=== PATIENT | male | born 1990 | race African-American/Black ===

== ENCOUNTER 2018-11-09 06:26 | Day surgery (SDC) | payer OTHER ==
[2018-11-08 10:34] LABS: Potassium 4.2 mmol/L (3.5-5.1)
[2018-11-08 10:35] LABS: Absolute Lymphocytes (CBC) 1.7 K/uL (0.7-4.9); Basophils % 0.4 % (0-1.3); Hematocrit 46.7 % (36.0-45.0); Lymphocytes % 24.2 % (15.3-44.8); MPV 8.2 fL (7.6-11.3); RBC Red Blood Cell Count 5.55 M/uL (3.86-4.86)
--- OUTSIDE RECORDS SUMMARY | 2018-11-09 06:28 | XMS REPORT | Summary of Care ---
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 [facility] Ashtyn Her MD [address] [place] [address] Prediabetes (Primary Dx); Phlebotomy 1, [facility] Lab Hyperlipidemia, unspecified hyperlipidemia type; [facility] Obstructive apnea [address] [facility] [place] [address] Allergies Not on Filedocumented as of this encounter (statuses as of 11/06/2018) Medications Not on filedocumented as of this encounter (statuses as of 11/06/2018) Active Problems Not on filedocumented as of this encounter (statuses as of 11/06/2018) Social History Tobacco Use Types Packs/Day Years Used Date Never Assessed Sex Assigned at Date Recorded Not on file Job Start Date Occupation Industry Not on file Not on file Not on file Travel History Travel Start Travel End No recent travel history available. documented as of this encounter Last Filed Vital Signs Not on filedocumented in this encounter Plan of Treatment Name Type Priority Associated Diagnoses Date/Time VITAMIN D, 25-[facility] LAB Routine Prediabetes 11/06/2018 9:42 AM Hyperlipidemia, CDT unspecified hyperlipidemia type Obstructive apnea GLYCOSYLATED HEMOGLOBIN LAB Routine Prediabetes 11/06/2018 9:42 AM (A1C) Hyperlipidemia, CDT unspecified hyperlipidemia type Obstructive apnea COMP. METABOLIC PANEL LAB Routine Prediabetes 11/06/2018 9:42 AM ([id number]) Hyperlipidemia, CDT unspecified hyperlipidemia type Obstructive apnea LIPID PANEL LAB Routine Prediabetes 11/06/2018 9:42 AM ([id number])(TOTAL Hyperlipidemia, CDT CHOLESTEROL, unspecified hyperlipidemia TRIGLYCERIDES, HDL) type Obstructive apnea Health Maintenance Due Date Last Done Comments VARICELLA VACCINES (1 of 2 - 13+ 2002 2-dose series) DTaP,Tdap,and Td Vaccines (1 - 2008 Tdap) INFLUENZA VACCINE (#1) 2018 PNEUMOCOCCAL 0-64 YEARS COMBINED Aged Out No longer eligible based on SERIES patient's age to complete this topic documented as of this encounter Procedures Procedure Name Priority Date/Time Associated Diagnosis Comments CBC WITH Routine 11/06/2018 9:42 Prediabetes Results for this DIFFERENTIAL AM CDT Hyperlipidemia, procedure are in unspecified the results hyperlipidemia type section. Obstructive apnea CBC WITH DIFF Routine 11/06/2018 9:42 Prediabetes Results for this AM CDT Hyperlipidemia, procedure are in unspecified the results hyperlipidemia type section. Obstructive apnea documented in this encounter Results CBC WITH DIFFERENTIAL (11/06/2018 9:42 AM CDT) WBC 8.46 4.20 - 10.70 [facility] 10*3/L [facility] RBC 5.42 4.26 - 5.52 [facility] 10*6/L [facility] HGB 14.8 12.2 - 16.4 g/dL [facility] HCT 47.4 38.4 - 49.3 % [facility] MCV 87.5 81.7 - 95.6 fL [facility] MCH 27.3 26.1 - 32.7 pg [facility] MCHC 31.2 31.2 - 35.0 g/dL [facility] RDW-SD 39.6 38.5 - 51.6 fL [facility] RDW-CV 12.4 12.1 - 15.4 % [facility] PLT 241 150 - 328 [facility] 10*3/L HOSPITAL [facility] MPV 9.4 (L) 9.8 - 13.0 fL [facility] NRBC/100 WBC 0.0 0.0 - 10.0 /100 [facility] WBCs [facility] NRBC x10^3 <0.01 10*3/L [facility] GRAN MAT (NEUT) % 61.5 % [facility] IMM GRAN % 0.40 % [facility] LYMPH % 25.4 % [facility] MONO % 10.2 % [facility] EOS % 2.1 % [facility] BASO % 0.4 % [facility] GRAN MAT x10^3(ANC) 5.21 1.99 - 6.95 [facility] 10*3/uL [facility] IMM GRAN x10^3 0.03 0.00 - 0.06 [facility] 10*3/uL HOSPITAL LAB[facility] LYMPH x10^3 2.15 1.09 - 3.23 [facility] 10*3/uL H[facility]PITAL [facility] MONO x10^3 0.86 0.36 - 1.02 [facility] 10*3/uL HOSPITAL LAB[facility] EOS x10^3 0.18 0.06 - 0.53 [facility] 10*3/uL HOSPITAL [facility] BASO x10^3 0.03 0.01 - 0.09 [facility] 10*3/uL [facility] Specimen Blood Performing Organization Address City/State/Zipcode Phone Number [facility] CLIA: [id number], [address] [place] [address] documented in this encounter Visit Diagnoses Diagnosis Prediabetes - Primary Other abnormal glucose Hyperlipidemia, unspecified hyperlipidemia type Obstructive apnea Obstructive sleep apnea (adult) (pediatric) documented in this encounter Insurance Payer Benefit Plan / Subscriber ID Effective Phone Address Type Group Dates [employer] xxxxxxxxx 2013-[facility] [address] [place] [address] [place] [address] documented as of this encounter
--- OUTSIDE RECORDS SUMMARY | 2018-11-09 06:28 | XMS REPORT ---
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 Problem Body mass index (BMI) of 40.0-44.9 Z68.41 Active in adult Problem Morbid obesity E66.01 Active Problem Prediabetes R73.03 Active Problem ADD (attention deficit disorder) F98.8 Active Problem Multiple lipomas D17.9 Active Problem Elevated blood pressure reading in R03.0 Active office without diagnosis of hypertension Problem Tinea cruris B35.6 Active Problem ISELA (obstructive sleep apnea) G47.33 Active Problem Goiter E04.9 Active Problem Borderline diabetes R73.09 Active Problem Hyperlipidemia, unspecified E78.5 Active hyperlipidemia type Problem Autism F84.0 Active Problem Obesity (BMI 30-39.9) E66.9 Active Problem Acanthosis nigricans L83 Active Problem Oppositional defiant behavior F91.3 Active Problem Attention-deficit hyperactivity F90.9 Active disorder, unspecified type Medications No Known Medications Results No Known Results Summary Purpose eClinicalWorks Submission
--- OUTSIDE RECORDS SUMMARY | 2018-11-09 06:28 | XMS REPORT ---
:1990 Author Organization eClinicalWorks Care Team Providers Name Role Phone Nancy Fowler Provider Role Unavailable Allergies, Adverse Reactions, Alerts Substance Reaction Event Type N.K.D.A. Info Not Available Non Drug Allergy Problems Problem Type Condition Code Onset Dates Condition Status Assessment Pain of left foot M79.672 Active Assessment Pain in right foot M79.671 Active Assessment Body mass index (BMI) of 40.0-44.9 Z68.41 Active in adult Assessment Vitamin D deficiency E55.9 Active Assessment Morbid obesity E66.01 Active Assessment ISELA (obstructive sleep apnea) G47.33 Active Assessment Hyperlipidemia, unspecified E78.5 Active hyperlipidemia type Assessment Prediabetes R73.03 Active Problem Oppositional defiant behavior F91.3 Active Problem Borderline diabetes R73.09 Active Problem Tinea cruris B35.6 Active Problem Hyperlipidemia, unspecified E78.5 Active hyperlipidemia type Problem ISELA (obstructive sleep apnea) G47.33 Active Problem Morbid obesity E66.01 Active Problem Obesity (BMI 30-39.9) E66.9 Active Problem Pain in left ankle and joints of M25.572 Active left foot Problem Pain in right foot M79.671 Active Problem Elevated blood pressure reading in R03.0 Active office without diagnosis of hypertension Problem Prediabetes R73.03 Active Problem Other chronic pain G89.29 Active Problem ADD (attention deficit disorder) F98.8 Active Problem Multiple lipomas D17.9 Active Problem Morbid (severe) obesity due to E66.01 Active excess calories Problem Pain of left foot M79.672 Active Problem Body mass index (BMI) of 40.0-44.9 Z68.41 Active in adult Assessment Other chronic pain G89.29 Active Problem Hematuria R31.9 Active Assessment Pain in left ankle and joints of M25.572 Active left foot Problem Vitamin D deficiency E55.9 Active Problem Autism F84.0 Active Problem Acanthosis nigricans L83 Active Problem 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 with complications Problem Goiter E04.9 Active Problem Allergic rhinitis J30.9 Active Problem Attention-deficit hyperactivity F90.9 Active disorder, unspecified type Medications Medication Code Code Instructions Start End Date Status Dosage System Date Vitamin D [facility] 20292320038 1000 UNIT Orally Active 1 tablet Once a day ZyrTEC [facility] 70342018183 orally Once Active 10 mg (OTC) daily 1 tablet Risperidone [facility] 24511608052 2 MG Orally Once Active 1 tablet in a day evening for mood/behavi or Results No Known Results Summary Purpose eClinicalWorks Submission
--- OUTSIDE RECORDS SUMMARY | 2018-11-09 06:28 | XMS REPORT | Summary of Care ---
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 [facility] Ashtyn Her MD [address] [place] [address] Laboratory 1, [facility] Health Maintenance Due Date Last Done Comments VARICELLA VACCINES (1 of 2 - 13+ 2002 2-dose series) DTaP,Tdap,and Td Vaccines ( - 2008 Tdap) INFLUENZA VACCINE (Retired 11/04/2018 version) PNEUMOCOCCAL 0-64 YEARS COMBINED Aged Out No longer eligible based on SERIES patient's age to complete this topic documented as of this encounter Procedures Procedure Name Priority Date/Time Associated Diagnosis Comments ASSIGNMENT OF BENEFITS Routine 11/06/2018 9:13 AM CDT documented in this encounter Results Not on filedocumented in this encounter Insurance Payer Benefit Plan / Subscriber ID Effective Phone Address Type Group Dates [employer] xxxxxxxxx 2013- [address] [place] [address] [place] [address] documented as of this encounter
--- OUTSIDE RECORDS SUMMARY | 2018-11-09 06:28 | XMS REPORT ---
:1990 Author Organization eClinicalWorks Care Team Providers Name Role Phone Nancy Fowler Provider Role Unavailable Allergies, Adverse Reactions, Alerts Substance Reaction Event Type N.K.D.A. Info Not Available Non Drug Allergy Problems Problem Type Condition Code Onset Dates Condition Status Assessment Body mass index (BMI) of 40.0-44.9 Z68.41 Active in adult Assessment Morbid obesity E66.01 Active Assessment Vitamin D deficiency E55.9 Active Assessment ISELA (obstructive sleep apnea) G47.33 Active Assessment Hyperlipidemia, unspecified E78.5 Active hyperlipidemia type Assessment Influenza vaccination administered Z23 Active at current visit Problem Acanthosis nigricans L83 Active Assessment Elevated blood pressure reading in R03.0 Active office without diagnosis of hypertension Problem Attention-deficit hyperactivity F90.9 Active disorder, unspecified type Assessment Multiple lipomas D17.9 Active Problem Hematuria R31.9 Active Problem Allergic rhinitis J30.9 Active Problem Vitamin D deficiency E55.9 Active Problem Morbid (severe) obesity due to E66.01 Active excess calories Problem Body mass index (BMI) of 40.0-44.9 Z68.41 Active in adult Problem 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 with complications Problem Morbid obesity E66.01 Active Assessment Prediabetes R73.03 Active Problem Prediabetes R73.03 Active Problem ADD [...] Problem Obesity (BMI 30-39.9) E66.9 Active Problem Oppositional defiant behavior F91.3 Active Medications Medication Code Code Instructions Start End Date Status Dosage System Date Risperidone [facility] 22301480020 2 MG Orally Once Active 1 tablet in a day evening for mood/behavi or Vitamin D [facility] 06630942162 1000 UNIT Orally Active 1 tablet Once a day ZyrTEC [facility] 54675359077 orally Once Active 10 mg (OTC) daily 1 tablet Results No Known Results Immunizations Vaccine Administration Date Flucelvax Dec 05, 2017 Summary Purpose eClinicalWorks Submission
--- OUTSIDE RECORDS SUMMARY | 2018-11-09 06:28 | XMS REPORT ---
:1990 Author Organization eClinicalWorks Care Team Providers Name Role Phone Janeth Nancy Provider Role Unavailable Allergies No Known Allergies Problems Problem Type Condition Code Onset Dates Condition Status Problem Morbid obesity E66.01 Active Problem Pain in right foot M79.671 Active Problem Other chronic pain G89.29 Active Problem Mood disorder F39 Active Problem Autism F84.0 Active Problem CPAP (continuous positive airway Z99.89 Active pressure) dependence Problem Hyperlipidemia, unspecified E78.5 Active hyperlipidemia type Problem Oppositional defiant behavior F91.3 Active Problem Skin lesion L98.9 Active Problem Pain of left foot M79.672 Active Problem Pain in left ankle and joints of M25.572 Active left foot Problem Elevated BP without diagnosis of R03.0 Active hypertension Problem Depression screening Z13.31 Active Problem 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
--- OUTSIDE RECORDS SUMMARY | 2018-11-09 06:28 | XMS REPORT ---
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
--- OUTSIDE RECORDS SUMMARY | 2018-11-09 06:28 | XMS REPORT ---
:1990 [facility] [address] Webb [address] [place] [address] Care Team Providers Name Role Phone Unavailable Unavailable Unavailable Problems This patient has no known problems. Allergies, Adverse Reactions, Alerts This patient has no known allergies or adverse reactions. Medications This patient has no known medications.
--- OUTSIDE RECORDS SUMMARY | 2018-11-09 06:28 | XMS REPORT ---
:1990 Author Organization eClinicalWorks Care Team Providers Name Role Phone Nancy Fowler Provider Role Unavailable Allergies, Adverse Reactions, Alerts Substance Reaction Event Type N.K.D.A. Info Not Available Non Drug Allergy Problems Problem Type Condition Code Onset Dates Condition Status Assessment Morbid obesity E66.01 Active Assessment Body mass index (BMI) of 40.0-44.9 Z68.41 Active in adult Assessment ISELA (obstructive sleep apnea) G47.33 Active Assessment CPAP (continuous positive airway Z99.89 Active pressure) dependence Assessment Hyperlipidemia, unspecified E78.5 Active hyperlipidemia type Assessment Elevated BP without diagnosis of R03.0 Active hypertension Assessment Skin lesion L98.9 Active Assessment Multiple lipomas D17.9 Active Assessment Depression screening Z13.31 Active Problem Multiple lipomas D17.9 Active Assessment Prediabetes R73.03 Active Problem Body mass index (BMI) of 40.0-44.9 Z68.41 Active in adult Problem Morbid obesity E66.01 Active Problem Pain in right foot M79.671 Active Problem Other chronic pain G89.29 Active Problem Mood disorder F39 Active Problem CPAP (continuous positive airway Z99.89 Active pressure) dependence Problem Autism F84.0 Active Problem Hyperlipidemia, unspecified E78.5 Active hyperlipidemia type Assessment ADD (attention deficit disorder) F98.8 Active Problem Skin lesion L98.9 Active Problem Oppositional defiant behavior F91.3 Active Assessment Mood disorder F39 Active Problem Pain of left foot M79.672 Active Problem Pain in left ankle and joints of M25.572 Active left foot Problem Elevated BP without diagnosis of R03.0 Active hypertension Problem Depression screening Z13.31 Active Assessment Pain of left foot M79.672 Active Problem 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 with complications Assessment Vitamin D deficiency E55.9 Active Problem Vitamin D deficiency E55.9 Active Assessment Pain in left ankle and joints of M25.572 Active left foot Problem Acanthosis nigricans L83 Active Assessment Pain in right foot M79.671 Active Problem Attention-deficit hyperactivity F90.9 Active disorder, unspecified type Assessment Autism F84.0 Active Problem ADD (attention deficit disorder) F98.8 Active Assessment Other chronic pain G89.29 Active Problem Prediabetes R73.03 Active Problem Allergic rhinitis J30.9 Active Problem ISELA (obstructive sleep apnea) G47.33 Active Medications Medication Code Code Instructions Start End Status Dosage System Date [facility] Once Active 10 mg (OTC) 1 daily tablet Vitamin D [facility] 03093246865 1000 UNIT Active 1 tablet Orally Once a day Risperidone [facility] 35840555129 2 MG Orally Active 1 tablet in Once a day evening for mood/behavior Mupirocin [facility] 97587319700 2 % Externally Oct 20, Oct 30, Active 1 application Two times a day 2018 2018 to affected area Results No Known Results Summary Purpose eClinicalWorks Submission
[2018-11-09] MEDS ORDERED: CEFAZOLIN/SWI 1gm 1 GM/10 ML SYR ONE (06:41)
[2018-11-09] MEDS ORDERED: Ringers Lactate 1,000 ML IV ONE (06:41)
[2018-11-09] MEDS ORDERED: FENTANYL CITR 100 MCG/2 ML ONE (07:09)
[2018-11-09] MEDS ORDERED: ONDANSETRON 4 MG/2 ML VIAL ONE (07:10)
[2018-11-09] MEDS ORDERED: LIDOCAINE 1% MPF 2 ML AMPULE ONE (07:10)
[2018-11-09] MEDS ORDERED: PROPOFOL 200 MG/20 ML VIAL IV ONE (07:10)
[2018-11-09] MEDS ORDERED: MIDAZOLAM HCL 2 MG/2 ML INJ ONE (07:10)
[2018-11-09] MEDS ORDERED: ROCURONIUM 50 MG/5 ML VIAL IV ONE (07:10)
[2018-11-09] MEDS ORDERED: BUPIVACAINE 0.5% PF 10 ML VIAL ONE (07:22)
[2018-11-09] MEDS ORDERED: HYDROCODONE/APAP 7.5/325 MG TAB ONE (08:52)
--- NOTE | 2018-11-09 19:48 | OP ---
Date of Procedure: 11/09/2018 Surgeon: Ken Pisano MD Preoperative Diagnosis: Left arm mass x3, symptomatic. Postoperative Diagnosis: Left arm mass x3, symptomatic. Procedure: Excision of left arm mass x3. The proximal mass was 5 x 3 cm and distal mass was 4 x 2 c m, the middle mass was 3 x 1 cm. Layered closure was used on all 3 wounds, 5 cm of proximal, 4 cm of the distal, 3 cm of middle. Estimated Blood Loss: Minimal. Specimen: Fibrolipoma. Finding: As above. Anesthesia: general. Complication: None. Patient tolerated the procedure is stable condition and taken to Recovery in good general condition. Procedure In Detail: Patient was brought to the OR and placed in supine position. General anesthesi a was begun. Patient was prepped and draped in the usual sterile fashion. Marcaine 0.5% was infiltr ated locally. A 15-blade was used to make a 5 cm incision in the proximal forearm, a 4 cm incision i n the distal forearm, and 3 cm incision in the middle forearm. There were in the subcutaneous tissue fibrolipoma identified, excised sent to Pathology as specimen. All wounds irrigated, bleeding contr olled with cautery, and then 3-0 chromic was used to approximate the subcutaneous tissue and close sk in and the length of the closure was 5, 4, and 3 cm respectively. Sterile dressing was applied. Pat ient was awakened and taken to Recovery in good general condition. Discharge Note: Patient will go to day surgery and home when stable. Disposition: Home. Condition: Stable. Discharge Instructions: Resume home medications and diet. Activity as tolerated. No heavy lifting. Remove outer dressing in 2 days. Shower. Keep wound clean and dry. Keep Steri-Strips on at all t imes. Follow up in my office in 10, days call for appointment. Tylenol No. 3 one tablet p.o. q.4 p. r.n. pain. /MODL Voice ID: [id number] Report ID: [id number]
== END 2018-11-09 09:33 | disposition home or self-care (01) ==
LOC: EDSEX 06:26 → OR 06:26
PROVIDERS: ATTEND Surgery
PROC: 0JBH0ZZ Excision of Left Lower Arm Subcutaneous Tissue and Fascia, Open Approach (ICD-10-PCS; principal; 2018-11-09 07:30)
DX: D17.22 Benign lipomatous neoplasm of skin and subcutaneous tissue of left arm (principal); F84.0 Autistic disorder; F90.9 Attention-deficit hyperactivity disorder, unspecified type
CPT/HCPCS: 85025; 80048; 36415; 88304; 11406; 11404; 11443; J2704; J2250; J3010; J2001; J0690; J2405